=== PATIENT | female | born 1995 | race African-American/Black ===

== ENCOUNTER 2020-02-13 19:44 | Emergency (ER) | payer MEDICAID ==
[~2020-02-13] VITALS: Ht 154.9 cm; Wt 72.6 kg
[2020-02-13 20:00] VITALS: BP 131/72
[2020-02-13 20:10] VITALS: BP 131/72
--- NOTE | 2020-02-13 20:15 | Emergency Room Report ---
History of Present Illness General Chief Complaint: Eye Problems Source: Patient Present Illness HPI Disclaimer: Please note that this report is being documented using ididwork technology. This can lead to erroneous entry secondary to incorrect interpretation by the dictating instrument. HPI: 25-year-old female presents for evaluation of papilledema. Patient states she went to go see her vending machine coin collector earlier today who told her she had bilateral papilledema. She was directed to go to the ER for evaluation. Patient reports chronic and persistent headaches for the past 3 years. States she had MRI of the brain earlier this year which was unremarkable. She was seen by neurology and follows with her PMD. She has an appointment to see her PMD tomorrow. Denies recent trauma. Reports no change in her menstrual cycle. No significant change in vision reported. Denies seizure activity. No change in quality or severity of headaches. Denies nausea, vomiting, fever, chills, chest pain, palpitations, shortness of breath or other symptoms. PMH: Denied PSH: Denied Allergies: Denied Social Hx: Denied Allergies: Coded Allergies: No Known Allergies (Unverified , 02/13/20) COVID-19 Screening Contact w/high risk pt: No Experienced COVID-19 symptoms?: No COVID-19 Testing performed REPAIR MILLER: No Patient History Last Menstrual Period: now Now: No Nursing Documentation-PMH Past Medical History: No Stated History Review of Systems All Other Systems: negative except mentioned in HPI Physical Exam Vital Signs Date Time Temp Pulse Resp B/P (MAP) Pulse Ox O2 Delivery O2 Flow Rate FiO2 02/13/20 19:51 97.9 87 20 131/72 (91) 98 Room Air General: Awake and alert, no acute distress HEENT: NC/AT. EOMI. PERRLA. No nystagmus. No retinal hemorrhage identified. No obvious papilledema on my exam Resp: Normal work of breathing Skin: Intact. No abrasions, laceration or rash over the exposed skin MSK: Normal tone and bulk. Moving all extremities. No obvious deformity. Neuro: Awake and alert. Mentating appropriately Medical Decision Making Diagnostic Impression: Primary Impression: Papilledema ER Course Is a 25-year-old female presenting for evaluation of papilledema found on routine eye exam earlier today by vending machine coin collector. May be pseudotumor cerebri, normal finding. No clinical concern for meningitis. Very little concern for space-occupying lesion or other intracranial structural abnormality given the patient had a negative MRI earlier this year. I offered CT imaging to the patient however she declined stating that she will see her PMD in the morning who will refer her again to neurology and further testing as needed. She states she only came today because the vending machine coin collector scared her and wanted a medical evaluation. I see no focal neurologic deficits or other signs of acute space- occupying mass or other concerning pathology. Patient stable for outpatient follow-up with her PMD and neurology. Instructed to return new or worsening symptoms. Last Vital Signs Date Time Temp Pulse Resp B/P (MAP) Pulse Ox O2 Delivery O2 Flow Rate FiO2 02/13/20 20:00 97.9 20 131/72 98 Room Air 02/13/20 19:51 87 Disposition: HOME, SELF-CARE Condition: Stable Additional Instructions: Follow-up with your primary care doctor tomorrow as scheduled and discuss new diagnosis of papilledema. Discussed referral to ophthalmology as well as neurology. Return to the emergency department new or changing quality of your headaches. Edwin Richardson MD Feb 13, 2020 20:15
== END 2020-02-13 20:10 | disposition home or self-care (01) ==
LOC: EMR 20:10
DX: H47.10 Unspecified papilledema (principal)
CPT/HCPCS: 99281